=== PATIENT | male | born 2000 | race Caucasian/White ===

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

== ENCOUNTER 2021-01-11 12:10 | Outpatient (REF) | payer MEDICAID, SELFPAY ==
[2021-01-11 12:52] LABS: COVID-19 Test Negative (Negative)
== END 2021-01-11 12:11 | disposition home or self-care (01) ==
LOC: HO.LAB 12:10
PROVIDERS: Visit Provider Internal Medicine
DX: Z20.822 Contact with and (suspected) exposure to COVID-19 (principal)
CPT/HCPCS: 36415; 87635; C9803

== ENCOUNTER 2025-01-09 09:16 | Emergency (ER) | payer SELFPAY ==
[2025-01-09 09:19] VITALS: BP 146/67; PULSE 89; RESP 20; TEMP 37; O2SAT 98; BMI 28.3
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
--- OUTSIDE RECORDS SUMMARY | 2025-01-09 09:46 | XMS_ITS | Clinical Summary ---
Author Organization [employer] Address [address] [place] [address] Care Team Providers Care District Court Judge Name Role Phone Radha Saldana MD Primary Care Provider [phone] Allergies Active Allergy Reactions Criticality Noted Date Comments Amoxicillin Rash Low 04/26/2010 Medications albuterol (2.5 MG/3ML) 0.083% nebulizer solution USE 1 VIAL VIA NEBULIZER EVERY 4 HOURS NEEDED 3 Active montelukast (Singulair) 10 MG tabletIndications :Moderate persistent asthma with acute exacerbation Take 1 tablet (10 mg) by mouth at bedtime. 90 tablet 1 3 Active Flovent Diskus 250 MCG/ACT aerosol powderIndications :Moderate persistent asthma with acute exacerbation Inhale 1 puff 2 times daily. 60 each 5 3 Active Ventolin HFA 108 (90 Base) MCG/ACT inhalerIndication s:Moderate persistent asthma with acute exacerbation INHALE 2 PUFFS BY MOUTH EVERY 4 HOURS NEEDED FOR WHEEZING 18 g 5 4 Active Active Problems Problem Noted Date Diagnosed Date Overweight (BMI 25.0-29.9) 08/20/2022 Assessment & Plan (08/20/2022 10:48 AM EDT): Will send screening labs. Declined nutrition referral Encounter for health-related screening 3 Asthma 09/25/2011 Assessment & Plan (08/20/2022 10:49 AM EDT): Moderate persistent, controlled. Will refill medications Contact dermatitis 09/25/2011 Immunizations Immunization Administration Dates Next Due DTaP 07/14/2005,08/26/2002,2001 DTaP, 5 pertussis antigens 07/14/2005,,2001,06/25,2001 HPV, Bivalent 04/26/2010 HPV, Quadrivalent 03/15/2014,10/14/2011 Hep A, ped/adol, 2 dose 03/15/2014,04/26/2010 Hep B, Adolescent or Pediatric 2,2001,2001,02/25 Hib (HbOC) 05/27/2002, 2,2001,04/28 Hib (PRP-T) 05/27/2002, 2,2001,04/28 IPV 07/14/2005, 2,2001,06/25,2001,2001 Influenza injectable quadriv alent preservative free 01/26/2019,02/03/2017,03/15/2014,01/30 Influenza, IIV3, injectable 01/30/2009 Influenza, Split (incl. yoseph fied surface antigen) 03/29/2013 MMR 07/14/2005,03/11/2002 Meningococcal MCV4P ACYW-135 01/26/2019,03/15/20 14 Novel [id number], all formulations 04/10/2009 Pfizer Covid-19 Vaccine 12+ 09/26/2020 Pfizer Covid-19 Vaccine 12+ juan antonio-sucrose (Lal Cap) 07/07/2021 Pneumococcal Conjugate PCV 13 2001, 002 Pneumococcal Conjugate PCV 7 2001, 2001,2001,06/25,2001 Tdap 03/15/2014 Varicella 12/22/2007,03/11/2002 Family History Medical History Relation Name Comments Asthma Maternal Grandmother Diabetes Maternal Grandmother Asthma Mother Diabetes Mother Relation Name Status Comments Maternal Grandmother Mother Social History Tobacco Use Types Packs/Day Years Used Date Smoking Tobacco: Never Passive Smoke Exposure: Never Smokeless Tobacco: Never Tobacco Cessation:Counseling Given: Not Answered Alcohol Use Standard Drinks/Week Comments Not Asked 0 (1 standard drink = 0.6 oz pur e alcohol) Depression Answer Date Recorded Patient Health Questionnaire-9 Score 2 08/20/2022 Depression Answer Date Recorded Patient Health Questionnaire-2 Score 1 08/20/2022 Sex and Gender Information Value Date Recorded Sex Assigned at Male 03/10/2022 10:18 AM EDT Legal Sex Male 10:18 AM EDT Gender Identity Choose not to disclose 10:18 AM EDT Sexual Orientation Choose not to disclose 2021 10:18 AM EDT Last Filed Vital Signs Vital Sign Reading Time Taken Comments Blood Pressure 126/82 08/20/2022 9:32 AM EDT Pulse 84 08/20/2022 9:32 AM EDT Temperature 36.4 C (97.6 F) 08/20/2022 9:32 AM EDT Respiratory Rate 20 08/20/2022 9:32 AM EDT Oxygen Saturation 99% 08/20/2022 9:32 AM EDT Inhaled Oxygen Concentration - - Weight 86.8 kg (191 lb 6.4 oz) 08/20/2022 9:32 AM EDT Height 172 cm (5' 7.72 ) 08/20/2022 9:32 AM EDT Body Mass Index 29.35 08/20/2022 9:32 AM EDT Plan of Treatment Health Maintenance Due Date Last Done Comments Chlamydia and Gonorrhea Screening 2001 HIV Screening 2001 SDOH Screening 2001 Disability Screening 2001 Pneumococcal Vaccine: Pediatrics (0 to 5 Years) and At-Risk Patients (6 to 49) Years (1 of 1 - PPSV23) 2007 2001, 2001, 2001, Additional history exists Alcohol/Substance Use Screening 2013 Family Planning (PISQ) 02/25/2016 Meningococcal B Vaccine (1 of 2 - Standard) 2017 Hepatitis C Screening 2019 Depression Screening 08/21/2023 08/20/2022, 08/21/19 23 Tobacco Screening 08/21/2023 08/20/2022 DTaP/Tdap/Td Vaccines (7 - Td or Tdap) 03/15/2024 03/15/2014, 07/14/2005, 07/14/2005, Additional history exists COVID-19 Vaccine ( season) 2025 07/07/2021, 10/17/2020, 09/26/2020 Influenza Vaccine (#1) 2025 9, 02/03/2017, 03/15/2014, Additional history exists Zoster Vaccines (1 of 2) 2051 RSV Patients and Patients Aged 60 years or older (1 - 1-dose 75+ series) 02/25/2076 Hepatitis B Vaccines Completed 2001, 2001, 2001, Additional history exists HIB Vaccines Completed 05/27/2002, 05/11, 2001, Additional history exists IPV Vaccines Completed 07/14/2005, 01/09, 2001, Additional history exists HPV Vaccines Completed 03/15/2014, 09/2011, 04/26/2010 Hepatitis A Vaccines Completed 03/15/2014, 04/26/20 10 Meningococcal Vaccine Completed 01/26/2019, 014 RSV under 20 months Aged Out No longe r eligible based on patient's age to complete this topic Rotavirus Vaccines Aged Out No longer eligible based on patient's age to complete this topic Insurance [facility] C[address] Care Teams District Court Judge Relationship Specialty Start Date End Date Radha Saldana MD [address] [place] [id number] PCP - General Family Medicine 01/16/22
--- OUTSIDE RECORDS SUMMARY | 2025-01-09 09:46 | XMS_ITS | Encounter Summary ---
Author Organization [employer] Address [address] [place] [address] [address] [place] [address] Care Team Providers Care Commercial Door Installer Name Role Phone Radha Saldana MD Primary Care Provider [phone] Reason for Visit * Reason Onset Date Comments Nurse Triage 06/10/2023 Referral 06/10/2023 Encounter Details Date Type Department Care Team ([facility] st Contact Info) Description 06/10/2023 Telephone [facility] [address], [place] [phone] Radha Saldana MD [address] [place], [place] [phone] Nurse Triage; Referral Social History Tobacco Use Types Packs/Day Years Used Date Smoking Tobacco: Never Passive Smoke Exposure: Never Smokeless Tobacco: Never Alcohol Use Standard Drinks/Week Comments Not Asked [...] not to disclose 2021 10:18 AM EDT documented as of this encounter Miscellaneous Notes * Telephone Encounter - Ximena Albrecht RN - 06/10/2023 12:07 PM EST Call to [facility], reports having eye redness and 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 Pt deniesany cough, congestion, sneezing or runny nose. Per pt used OTC eye drops for eye redness. No eye discharge, blurred vision or eye pain. Pt advised that for those with asthma carpet is a trigger so should avoid and then wash hand after coming in contact with that to avoid sx. Pt to perform eye washes and use OTC eye drops. Continue to use Singulair daily. To return all if eye redness worsens, blurred vision, discharge or eye pain occurs. Pt agrees. Protocol Used: Eye - Red Without Pus (Adult) Protocol-Based Disposition: Home Care Override (Final) Disposition: Discuss with PCP and Callback by Nurse Override Reason: Other Override Notes: Pt requests director bioinformatics referral. Positive Triage Question: * Red eye caused by sunscreen, smoke, smog, chlorine, food, soap or other mild irritant * All higher-acuity triage questions were negative Care Advice Discussed: * Reassurance and Education - Mild Eye Irritants * Wash Face * Wash Irritant Out of Eyes * Reasons To Call Back - Yellow or green pus (discharge) from eye occurs - Blurred vision occurs - Redness lasts over 7 days - You become worse * Telephone Encounter - Kaera Weaver - 06/10/2023 12:01 PM EST Symptom: Allergic Reaction (General) Outcome: Schedule an urgent appointment (within 1 hour) or talk to a nurse or provider soon Reason: Caller denied all higher acuity questions The caller accepted this outcome documented in this encounter Plan of Treatment Not on file documented as of this encounter Visit Diagnoses Not on filedocumented in this encounter Additional Health Concerns Assessment Noted Time PHQ-9 Depression Total Score: 2 08/21/19 23 9:55 AM EDT documented as of this encounter Care Teams Commercial Door Installer Relationship Specialty Start Date End Date Radha Saldana MD [address] [place] [phone] PCP - General Family Medicine 01/16/22 documented as of this encounter
--- OUTSIDE RECORDS SUMMARY | 2025-01-09 09:46 | XMS_ITS | Clinical Summary ---
Author Organization [employer] [facility] Address [address] [place] [address] Care Team Providers Care Cement Despatch Operator Name Role Phone Unavailable Primary Care Provider Unavailabl e Social History Tobacco Use Types Packs/Day Years Used Date Smoking Tobacco: Never Assessed Sex and Gender Information Value Date Recorded Sex Assigned at Not on file Legal Sex Male 2:26 AM EST Gender Identity Not on file Sexual Orientation Not on file Plan of Treatment Health Maintenance Due Date Last Done Comments HPV Vaccines (1 - Male 3-dos e series) 02/25/2016 Meningococcal B Vaccine (1 o f 2 - Standard) 2017 DTaP,Tdap,and Td Vaccines (1 - Tdap) 02/25/2020 Hepatitis B Vaccines (1 of 3 - 19+ 3-dose series) 02/25/2020 Depression Screening 05/11/2024 COVID-19 Vaccine (1 - 2023-2 5 season) 2025 Influenza Vaccine (#1) 2025 HIB Vaccines Aged Out No longer eligi ble based on patient's age to complete this topic Hepatitis A Vaccines Aged Out No long er eligible based on patient's age to complete this topic IPV Vaccines Aged Out No longer eligi ble based on patient's age to complete this topic MMR Vaccines Aged Out No longer eligi ble based on patient's age to complete this topic Meningococcal ACWY Vaccine Aged Out N o longer eligible based on patient's age to complete this topic Pneumococcal Vaccine: Pediat rics (0 to 5 Years) and At-Risk Patients (6 to 49 Years) Aged Out No longer eligible b ased on patient's age to complete this topic RSV Immunization Patients Un gloria 20 months Aged Out No longer eligible b ased on patient's age to complete this topic Varicella Vaccines Aged Out No longer eligible based on patient's age to complete this topic
[2025-01-09 11:34] VITALS: BP 146/67; PULSE 89; RESP 20; TEMP 37; O2SAT 98
== END 2025-01-09 11:36 | disposition home or self-care (01) ==
PROVIDERS: Emergency Provider Emergency Medicine
DX: M62.830 Muscle spasm of back (principal); S39.92XA Unspecified injury of lower back, initial encounter; V49.9XXA Car occupant (driver) (passenger) injured in unspecified traffic accident, initial encounter; Y93.9 Activity, unspecified; Y92.9 Unspecified place or not applicable; Y99.9 Unspecified external cause status; M54.50 Low back pain, unspecified
CPT/HCPCS: 99282; 99283